=== PATIENT | female | born 2000 ===

== ENCOUNTER 2024-06-12 20:42 | Emergency (ER) | payer SELFPAY ==
[2024-06-12 20:49] VITALS: BP 110/74
[2024-06-12 21:10] LABS: % Basophils 0.3 % (0-2); % Eosinophils 0.4 % (0-6); % Immature Granulocytes 0.1 % (0-0.5); % Lymphocytes 22.8 % (20.5-51.1); % Monocytes 6.5 % (1.7-9.3); % Neutrophils 69.9 % (42.2-75.2); Absolute Lymphocytes 1.5 10^3/uL (1.2-3.4); Absolute Monocytes 0.4 10^3/uL (0.1-0.6); Absolute Neutrophils 4.7 10^3/uL (1.4-6.5); Hematocrit 38.9 % (37.0-47.0); Mean Corp Hgb Conc. 33.4 g/dL (33.0-37.0); Mean Corpuscular Hgb 29.9 pg (27.0-31.0); Mean Corpuscular Volume 89.4 fL (81.0-99.0); Mean Platelet Volume 11.4 fL (7.4-10.4); Nucleated Red Blood Cells % 0 %; Platelet Count 178 10^3/uL (130-400); Red Blood Cell Count 4.35 10^6/uL (4.20-5.40); White Blood Cell Count 6.8 10^3/uL (4.8-10.8)
[2024-06-12 21:12] LABS: Urine Albumin Trace (Neg - Trace); Urine Bilirubin Negative (Negative); Urine Character Clear (Clear); Urine Color Yellow; Urine Glucose Negative (Negative); Urine Ketone Negative (Negative); Urine Leukocyte Trace (Negative); Urine Nitrite Negative (Negative); Urine Occult Blood Negative (Negative); Urine Urobilinogen Negative (Neg - 1+)
[2024-06-12 21:18] LABS: Urine Mucus Moderate; Urine Squamous Cell 21-25 /LPF (Few)
[2024-06-12 21:19] LABS: Urine Bacteria Few (Negative); Urine Red Blood Cell None Seen /HPF (0-2)
[2024-06-12 21:24] LABS: HCG, Serum Qualitative Screen Negative
[2024-06-12 21:28] LABS: ALT (SGPT) 19 U/L (0-35); AST (SGOT) 24 U/L (14-36); Albumin 4.8 g/dl (3.5-5.0); Alkaline Phosphatase 53 U/L (38-126); Blood Urea Nitrogen 14 mg/dl (7-17); Calcium 10.2 mg/dl (8.4-10.2); Carbon Dioxide 28 mmol/L (22-30); Chloride 105 mmol/L (98-107); Glucose 84 mg/dl (70-99); Potassium 3.7 mmol/L (3.5-5.1); Sodium 139 mmol/L (135-145); Total Bilirubin 0.6 mg/dl (0.2-1.3); Total Protein 7.4 g/dl (6.3-8.2); eGFR > 60.00
[2024-06-12 22:44] VITALS: BP 107/66
== END 2024-06-12 23:25 ==
LOC: EMR 20:42
PROVIDERS: Emergency Medicine
DX: R19.7 Diarrhea, unspecified (principal); R10.9 Unspecified abdominal pain; Z53.8 Procedure and treatment not carried out for other reasons
CPT/HCPCS: 80053; 81003; 81015; 84703; 85025

== ENCOUNTER 2025-02-24 08:40 | Emergency (ER) | payer SELFPAY ==
[2025-02-24 08:42] VITALS: BP 118/83
--- NOTE | 2025-02-24 09:25 | ED.GENMED ---
History of Present Illness
General
Chief Complaint: Change in Mental Status
Source: patient
Time Seen by Provider: 02/24/25 08:56
History of Present Illness
History of Present Illness:
24-year-old female with no significant past medical history presenting to the emergency department for evaluation stating she was driving to work feeling okay and then on Thursday and felt as if she became confused, noting she was starting to stop at
green lights and felt foggy. Patient states that she still has a sensation of brain fog and feels a little bit anxious but states she does not know why she is feeling this way. She denies any history of similar. She notes that it was a usual
morning for her, denies any changes in her routine or schedule. Denying any chest pain, shortness of breath, palpitations, headaches, visual changes, focal weakness or numbness, abdominal pain, nausea, vomiting social history was unremarkable,
notes occasional alcohol use but none today or yesterday. Last menstrual period was a little over 1 month ago but patient notes that it is not abnormal for her to have abnormal menstrual cycles. Family history was noted for grandparents having CVA
and another grandparent having a pacemaker
Past History
Past History
ED Past Medical History: None
ED Past Surgical History: Gynecological
Social History
Tobacco: Non-smoker
Alcohol: Occasional
Drug: None
Personal: Other (Engaged)
Living: with family
Employment: Employed
Review of Systems
Review of Systems
All Other Systems: ROS reviewed and negative except as documented in HPI and ROS
Phy Exam
Physical Exam
Physical Exam:
GENERAL: Alert , in no apparent distress, anxious and tearful
HEAD: Normocephalic atraumatic
EYE: Clear conjunctiva
NECK: Supple
ENT: o/p clr, mmm.
CARDIAC: Regular rate and rhythm .
LUNGS: Clear breath sounds bilaterally, no acute respiratory distress, no wheezes/rales/rhonchi
ABDOMEN: Soft, without focal tenderness, no r/g, no cvat
NEUROLOGICAL: Alert and oriented, no focal neuro deficits, ambulated with steady gait, moves all extremities
SKIN: Warm and dry, skin intact.
MUSCULOSKELETAL: No edema, well perfused.
PSYCH: Normal and appropriate interaction.
Scores
Heart Failure Risk
Heart Failure Risk Score: Not Applicable
Heart Score for Chest Pain Patients
STEMI patient?: Not applicable
Withdrawal Assessment of Alcohol
Withdrawal Assessment Completed?: Not applicable
Course
Orders/Labs/Results
Orders:
Orders
02/24/25 08:45
EKG [Electrocardiogram (*1)] Urgent
Reason for Study: Chest Pain
EKG- Treatment ONCE
02/24/25 09:10
CT Head W/o Iv Contrast Urgent
Comment:
Reason For Exam: confusion
Test Result ONCE
02/24/25 09:21
Complete Blood Count/With Diff Urgent
Comprehensive Metabolic Panel Urgent
HCG, Serum Qualitative Screen Urgent
TSH Urgent
02/24/25 09:52
Urinalysis Reflex To Culture Urgent
Date Specimen was Collected: 02/24/25
Time Specimen was Collected: 09:52
Urine Microscopic Reflex Cult Urgent
Urine Culture Urgent
TOO Source: U
Specimen Description:
Date Specimen was Collected: 02/24/25
Time Specimen was Collected: 09:52
Abnormal Lab Results
02/24/25 02/24/25
09:21 09:52
WBC 4.3 L 10^3/uL
(4.8-10.8)
RBC 4.14 L 10^6/uL
(4.20-5.40)
Hct 36.2 L %
(37.0-47.0)
MPV 11.3 H fL
(7.4-10.4)
Chloride 108 H mmol/L
(98-107)
Ur Occult Blood Reflex 1+ A
(Negative)
Leukocyte Esterase Rfl 2+ A
(Negative)
Urine Bacteria (Reflex) Few A
(Negative)
02/24/25 09:21
02/24/25 09:21
Vital Signs
Initial and Last Documented VS:
Initial Vital Signs
Temp Pulse Resp BP Pulse Ox
98.4 F 79 18 118/83 99
02/24/25 08:42 02/24/25 08:42 02/24/25 08:42 02/24/25 08:42 02/24/25 08:42
Last Documented Vital Signs
Temp Pulse Resp BP Pulse Ox
98.4 F 65 16 117/75 65
02/24/25 08:42 02/24/25 10:28 02/24/25 10:28 02/24/25 10:28 02/24/25 10:28
MDM/Problems Addressed
Differential Diagnosis Includes:
Anxiety, electrolyte derangement, , thyroid disorder, I have less concern for an acute neurologic event/intracranial bleeding but given the somewhat acute nature of symptoms we will check a head CT
MDM/Problems Addressed:
24-year-old female presenting to the ER for evaluation of acute onset of confusion, patient's that she just felt off rather acutely while driving to work earlier today. Patient without any focal or lateralizing symptoms. She is hemodynamically
stable. Labs including test and thyroid studies ordered. CT of the head ordered. Disposition pending
*Radiology
Radiology exam reviewed: radiology read reviewed
*Pulse Oximetry
Patient hypoxic: no
*EKG
Heart Rate: 64
Rate: normal
Rhythm: sinus arrhythmia
Severance: normal axis
Ischemia: no ischemia
*[employer] Interpretation
Rate: normal
Rhythm: sinus arrhythmia
*Critical Care Note
Total Time (30-74mins, 75-104mins- exclusive of procedures): Not Applicable
Patient Management
Escalation/DeEscalation of care consider admission/obs:
Patient's labs show a mild leukopenia, no specific etiology for this is patient denies any recent viral-like symptoms but I did advise patient she should follow-up with primary care provider for this in a few weeks. Patient notes her
confusion/fogginess seems to have dissipated but now has a slightly frontal headache. Question migraine with aura diagnosis. Head CT was negative for any pathology. At this time I do think it is reasonable for patient to be discharged home. Aware
of return precautions. Stable for discharge home
ED Attending Note
-
Portions of this chart may have been created with voice recognition software.� Occasional wrong word or��sound alike� substitutions may have occurred due to the inherent limitations of voice recognition software.
Discharge Plan
Departure
Patient Disposition: Home (Routine Discharge)
Date of Disposition: 02/24/25
Time of Disposition: 10:54
Patient with high blood pressure during this ER visit?: No
Discharge Problem:
Episode of confusion, Headache
Instructions: Migraine in adults
Referrals:
NONE,* [Family Provider] -
Stand Alone Forms: Return to Work
Interventions
Interventions:
*Risk Screen - Suicide Last Done: 02/24/25 08:42
*General Assessment Last Done: 02/24/25 08:42
*Neglect/Abuse Screening Last Done: 02/24/25 08:42
*ED COVID-19 Vaccine History Last Done: 02/24/25 08:42
ED- Neurological Assessment Last Done: 02/24/25 09:15
Discharge Date and Time
Print Language: UPPER SORBIAN
[2025-02-24 09:57] LABS: HCG, Serum Qualitative Screen Negative
[2025-02-24 10:03] LABS: ALT (SGPT) 27 U/L (0-35); AST (SGOT) 20 U/L (14-36); Albumin 3.9 g/dl (3.5-5.0); Alkaline Phosphatase 42 U/L (38-126); Blood Urea Nitrogen 12 mg/dl (7-17); Calcium 9.3 mg/dl (8.4-10.2); Carbon Dioxide 25 mmol/L (22-30); Chloride 108 mmol/L (98-107); Glucose 91 mg/dl (70-99); Sodium 139 mmol/L (135-145); Total Bilirubin 0.7 mg/dl (0.2-1.3); Total Protein 6.5 g/dl (6.3-8.2); eGFR > 60.00
[2025-02-24 10:06] LABS: Urine Albumin Negative (Neg - Trace); Urine Bilirubin Negative (Negative); Urine Character Clear (Clear); Urine Color Yellow; Urine Glucose Negative (Negative); Urine Ketone Negative (Negative); Urine Leukocyte 2+ (Negative); Urine Nitrite Negative (Negative); Urine Occult Blood 1+ (Negative); Urine Urobilinogen Negative (Neg - 1+)
[2025-02-24 10:17] LABS: % Basophils 0.2 % (0-2); % Eosinophils 1.4 % (0-6); % Immature Granulocytes 0.2 % (0-0.5); % Lymphocytes 27.2 % (20.5-51.1); % Monocytes 8.5 % (1.7-9.3); % Neutrophils 62.5 % (42.2-75.2); Absolute Eosinophils 0.1 10^3/uL (0-0.7); Absolute Lymphocytes 1.2 10^3/uL (1.2-3.4); Absolute Monocytes 0.4 10^3/uL (0.1-0.6); Absolute Neutrophils 2.7 10^3/uL (1.4-6.5); Hematocrit 36.2 % (37.0-47.0); Hemoglobin 12.2 g/dL (12.0-16.0); Mean Corp Hgb Conc. 33.7 g/dL (33.0-37.0); Mean Corpuscular Hgb 29.5 pg (27.0-31.0); Mean Corpuscular Volume 87.4 fL (81.0-99.0); Mean Platelet Volume 11.3 fL (7.4-10.4); Nucleated Red Blood Cells % 0 %; Platelet Count 194 10^3/uL (130-400); Red Blood Cell Count 4.14 10^6/uL (4.20-5.40); Red Cell Dist. Width 12.9 % (11.5-14.5); White Blood Cell Count 4.3 10^3/uL (4.8-10.8)
[2025-02-24 10:19] LABS: Urine Mucus Moderate; Urine Squamous Cell >30 /LPF (Few)
[2025-02-24 10:21] LABS: Urine Bacteria Few (Negative); Urine Red Blood Cell 0-2 /HPF (0-2)
[2025-02-24 10:28] VITALS: BP 117/75
[2025-02-24 10:32] LABS: TSH 1.75 uIU/ml (0.47-4.68)
== END 2025-02-24 11:15 | disposition home or self-care (01) ==
LOC: EMR 08:40
PROVIDERS: Physician Assistant Medical; EMERGENCY PHYSICIAN Emergency Medicine
DX: R41.0 Disorientation, unspecified (principal); R51.9 Headache, unspecified
CPT/HCPCS: 99284; 70450; 80053; 81003; 81015; 84443; 84703; 85025; 87086; 93005